=== PATIENT | female | born 2000 | race Caucasian/White ===

== ENCOUNTER 2022-02-13 08:50 | Inpatient (IN) ==
[2022-02-13] MEDS ORDERED: OXYTOCIN 30 UNITS/500 ML BAG IV PRN ×2 (10:02→14:36)
[2022-02-13 10:42] LABS: Hematocrit (blood only) 36.1 % (34.1-44.9); Hemoglobin 12.7 g/dl (12.0-16.0); Mean Corpuscular Hemoglobin 30.4 pg (25.0-34.0); Mean Corpuscular Hgb Conc 35.2 g/dL (32.0-36.0); Mean Corpuscular Volume 86.4 fL (80.0-100.0); Mean Platelet Volume 11.8 fL (9.4-12.3); Platelet Count 203 K/uL (130-400); RDW Coefficient of Variation 13.6 % (11.5-14.5); RDW Standard Deviation 42.4 fL (36.4-46.3); Red Blood Count 4.18 M/uL (3.93-5.22); White Blood Count 14.06 K/ul (4.8-10.8)
[2022-02-13] MEDS: LACTATED RINGER'S 1,000 ML IV PRN ×2 (11:21→16:10)
--- NOTE | 2022-02-13 11:29 | History & Physical Report ---
Date of Service February 13, 2022 Assessment & Plan (1) Supervision of normal intrauterine in primigravida: Plan: IUP at term in labor hoping to have unmedicated anticipate vaginal Admission and Anticipated Discharge Date Admission Date: February 13, 2022 History of Present Illness Primary Care Provider: Hugo Mercado MD Patient is a EDC 02/12/2022 who presented in active labor. contractions started at 0330 this morning - (-)bloody show (-) SPROM. has been uncomplicated so far. GBS(-). Allergies Allergy/AdvReac Type Severity Reaction Status Date / Time tretinoin Allergy Mild dry Verified 02/13/22 10:22 crusted skin Home Medications Medication Instructions Recorded Confirmed Type prenat.vits,juanjose,uqo-[id number]-[id number] 1 tab PO DAILY 07/06/21 02/13/22 History Patient History Medical History ADHD (attention deficit hyperactivity disorder) ASD (atrial septal defect), ostium secundum Bicuspid aortic valve Exposure to COVID-19 virus Heart murmur Migraine headache Surgical History No pertinent past surgical history Family History Other No significant family history Social History (Updated 07/06/21 @ 11:05 by Jaymie Blank) Smoking Status: Never smoker Second Hand Exposure: No; Hx Alcohol Use: No Hx Substance Use: No Preferred Language: Czech Communication Ability: Effective Water Fitness Instructor Required: No Beliefs That Will Affect Care: None marital status: Single marital status details: FOB: [place] (48) [phone] Current Living Situation: Significant Other Current Living Situation Comment: [place] and his 4 daughters (15yo,12,10,8) current occupational status: unemployed Other Information That Helps Us Care for You: No Feels Safe at Home: Yes Safety Concerns: Feels Safe At This Time Childhood Exposure to Second-Hand Smoke: No Dental Care, Regularly: Yes Assistive Devices: None Review of Systems All systems reviewed & are unremarkable except as noted in HPI & below Physical Exam Constitutional: WD/WN, vitals as above Psychiatric: A+Ox3, euthymic affect Genitourinary: OB Exam Abdomen: + vertex, + estimated weight (7-8 pounds) and + regular contractions (Q2-3 minutes-moderate) Manual OB Exam: + cervical dilation 7 cm, + cervical effacement (100) 100%, + station 0 and + amniotic fluid (AROM for clear fluid) clear OB Exam Monitor Tracing: + external FHT monitor used, + external uterine monitor used, + category I and + normal FHT variability Results & Data ([facility]) Vital Signs (Past 12 Hours) Vital Signs Temp Pulse Resp BP 02/13/22 09:53 97.9 F 20 02/13/22 09:49 85 111/76 Code Status & VTE Plan VTE Prophylaxis Plan VTE Prophylaxis will be ordered: No Coding Level of Care Code None Diagnoses Supervision of normal intrauterine in primigravida Z34.00
[2022-02-13] MEDS: OXYTOCIN 30 UNITS/500 ML BAG IV PRN ×2 (13:36→16:05)
[2022-02-13] MEDS: LIDOCAINE 1% LOCAL 20 ML VIAL INFIL PRN ×2 (14:04→14:45)
[2022-02-13] MEDS ORDERED: DIPHTHERIA/TETANUS/PERTUSSIS 0.5 ML SYR/VIAL IM ONE (14:36)
[2022-02-13] MEDS ORDERED: bisacodyL 10 MG SUPP PR PRN (14:36)
[2022-02-13] MEDS ORDERED: ACETAMINOPHEN 325 MG TAB PO PRN (14:36)
[2022-02-13] MEDS ORDERED: HYDROCORTISONE ACETATE 25 MG SUPP PR PRN (14:36)
[2022-02-13] MEDS ORDERED: BENZOCAINE 20% AER SPR 82.5 GM CAN EXT PRN (14:36)
--- NOTE | 2022-02-13 15:34 | Delivery Summary ---
Vaginal Delivery Summary Date of Service February 13, 2022 Vaginal Delivery Summary and 2nd Degree LAC (left sulcal extension & bilateral 2nd degree labial tears repaired. ) Patient is a 21-year-old 1 P0 female EDC of 02/12/2022 who presented in active labor on the day of her scheduled induction. She was 7 cm upon arrival and membranes were ruptured for clear fluid. She requested an unmedicated and progressed to full dilation and +2 station. She had the urge to push at that time and did so effectively over intact perineum. The perineum was supported at the time of delivery however the infant presented as occiput posterior then rotated to left occiput transverse. A loose nuchal cord was reduced after delivery of the head the rest of the delivered easily and was placed on the mother's abdomen for further attention and drying. With stimulation and drying the was then moving all 4 limbs and crying. After 1 minute the cord was clamped and cut. The placenta was expressed intact with a three-vessel cord. There was significant bleeding from the vaginal laceration site so visualization was difficult initially. A lap sponge was used vaginally to create hemostasis so the apex of the left sulcal tear could be identified. 3-0 chromic was used to close the defect along the left vaginal sidewall this then extended into a laceration at the hymenal ring. This defect was then closed in a running fashion. The bilateral second-degree labial lacerations were then closed with 3-0 chromic. 1% lidocaine was used to anesthetize the area of repair. bleeding was controlled with dilute Pitocin. Mother and were doing well after delivery. Estimated blood loss was 350 cc. [facility] Vaginal Delivery Charge Delivery Type Details: and 2nd Degree LAC (left sulcal extension & bilateral 2nd degree labial tears repaired. )
--- NOTE | 2022-02-13 17:07 | Anesthesiology Consultation ---
Date of Service February 13, 2022 Assessment & Plan Chart Review Chart Review: Acceptable Risk for Surgery Consults Requested none History Surgery Operation Date: 02/13/22 16:30 Proposed Procedures p Labor Delivery Repair Vaginal Laceration - Johanna Velez MD, FACOG Height/Weight Height: 5 ft 3 in Weight: 77.564 kg Allergies Allergy/AdvReac Type Severity Reaction Status Date / Time tretinoin Allergy Mild dry Verified 02/13/22 10: crusted skin Medications Home Medications Medication Instructions Recorded Confirmed Last Taken prenat.vits,juanjose,[id number]-[id number] 1 tab PO DAILY 07/06/21 02/13/22 02/13/22 07:00 Active Medications Generic Name Dose Route Start Last Admin Trade Name Freq PRN Reason Stop Dose Admin Lactated Ringer's 1,000 mls @ 125 mls/hr 02/13/22 10:02 02/13/22 16:10 Lr IV 02/15/22 10:01 125 mls/hr .Q8H PRN Administration L&D Protocol Protocol Oxytocin 30 units in 500 mls @ 333 mls/hr 02/13/22 10:02 02/13/22 16:11 Pitocin IV 03/15/22 10:01 19.98 units/hr .Q1H31M PRN 333 mls/hr Bleeding Control Titration Protocol 19.98 UNITS/HR Lidocaine HCl 20 ml 02/13/22 10:02 02/13/22 14:45 Lidocaine 1% Local 20 Ml Vial INFIL 03/15/22 10:01 20 ml ONCE PRN Administration Perineal/vaginal Repair Past Medical History Medical History ADHD (attention deficit hyperactivity disorder) ASD (atrial septal defect), ostium secundum Bicuspid aortic valve Exposure to COVID-19 virus Heart murmur Migraine headache Past Family History Family History Other No significant family history Past Surgical History Surgical History No pertinent past surgical history Social History Smoking Status: Never smoker Hx Alcohol Use: No Hx Substance Use: No Physical Exam Vital Signs Last Vital Signs Temp 36.4 C L 02/13/22 11:18 Pulse 118 H 02/13/22 16:41 Resp 20 02/13/22 14:30 BP 109/75 02/13/22 16:41 Testing Laboratory Results 02/13/22 10:31
[2022-02-13] MEDS ORDERED: TRANEXAMIC ACID / 0.7% NACL 1000MG/100ML BAG IV ONE (17:33)
--- NOTE | 2022-02-13 18:30 | Post Operative Brief Note ---
PG Immediate Post Op with CF Date of Surgery February 13, 2022 Pre & Post Diagnosis Operation Date: 02/13/22 16:30 <No data on this case meets the specified criteria> I identified the patient and participated in the time-out.: Yes Procedure Operation Date: 02/13/22 16:30 Actual Procedures p Labor Delivery Repair Vaginal Laceration; Exam under Anesthesia(Bilateral) - Johanna Velez MD, FACOG Surgeon Johanna Velez MD, FACOG Photoengraving Proofer Merlyn Rai DO Estimated Blood Loss 100 Findings Consistent with Post-Op Diagnosis left sulcal tear apex bleeding , bleeding also from right sulcal tear near introitus Drains Bey Catheter Anesthesia Type Spinal Complications none Disposition Accompanied Patient To Recovery: Yes Disposition: L&D
[2022-02-13 18:36] LABS: Hematocrit (blood only) 28.2 % (34.1-44.9); Hemoglobin 9.6 g/dl (12.0-16.0)
--- NOTE | 2022-02-13 19:13 | Operative Report ---
PG Post Operative Report Pre & Post Diagnosis Operation Date: 02/13/22 16:30 <No data on this case meets the specified criteria> I identified the patient and participated in the time-out.: Yes Procedure Operation Date: 02/13/22 16:30 Actual Procedures p Labor Delivery Repair Vaginal Laceration; Exam under Anesthesia(Bilateral) - Johanna Velez MD, FACOG Surgeon Johanna Velez MD, FACOG Brood Hatchery Manager Merlyn Rai DO Estimated Blood Loss 100 Findings Consistent with Post-Op Diagnosis Specimens none Drains Bey to straight drainage Anesthesia Type Spinal Complications none Disposition Accompanied Patient To Recovery: Yes Disposition: L&D Indications Patient is a 21-year-old female who delivered spontaneously without epidural or medication at approximately 1330 today. She had a significant left sulcal tear vaginally as well as a deep tear at the hymenal ring and a smaller right sulcal tear. This initially had been repaired with local anesthetic in the delivery room. Hemostasis was excellent initially, but after approximately 1 hour she began to have heavier vaginal bleeding despite the fact that her fundus was firm. On exam she was noted to be bleeding from the apex of the left sulcus laceration. It was felt prudent to proceed to the OR for exam under anesthesia and repair to adequately reach the bleeding site. Approximately 500 cc of measured blood loss prior to taking her to the OR. Description of Procedure After the patient received adequate saddle block anesthetic she was prepped and draped in usual sterile fashion. The apex of the left sulcal tear was identified and suture ligation was performed at the area of bleeding. Hematoma began to form beneath the repair site. Several [id number] stitches were placed on either side of the apex of the sulcal tear. This controlled the development of the hematoma. The sulcal tear was reinforced with an additional running locking suture to reinforce the repair done right after delivery. Monitoring the hematoma and sulcal tear area revealed no further development of hematoma and hemostasis was noted to be excellent in the apex of the sulcal laceration. Rest the vagina was then examined and there was bleeding also coming from the right vaginal sidewall. There is noted to be a smaller sulcal tear in this area and 3-0 chromic was used to secure the bleeding in a running locking fashion. At this point hemostasis was noted to be excellent. There is no vaginal hematoma formation noted. The vaginal wounds lacerations were observed for another 15 minutes to be sure there was no additional bleeding and no hematoma formation. Rectal exam at the end of the case revealed no suture in the rectum and no hematoma formation present. There is an additional 100 cc of blood loss during this portion of the case. A Bey catheter was placed at the end of the case using sterile technique. Patient was in stable condition upon arrival back in the labor and delivery room. I attest to the content of the Intraoperative Record and any orders documented therein. Any exceptions are noted below. [employer] Other Procedure Codes 19769 Exam under Anesth (repair of complicated bilateral sulcal lacerations)
--- NOTE | 2022-02-13 20:06 | Anesthesiology Progress Note ---
Date of Service February 13, 2022 Anesthesia Post Procedure Vital Signs Vital Signs: Temp Pulse Resp BP Pulse Ox 02/13/22 18:55 37.0 C 18 02/13/22 18:25 20 02/13/22 18:15 20 02/13/22 18:05 20 02/13/22 17:55 36.7 C 20 02/13/22 15:30 20 02/13/22 14:30 20 02/13/22 09:53 36.6 C 20 02/13/22 20:03 99 02/13/22 20:03 129 H 02/13/22 19:58 99 02/13/22 19:58 137 H 02/13/22 19:53 98 02/13/22 19:53 133 H 02/13/22 19:48 99 02/13/22 19:48 139 H 02/13/22 19:43 98 02/13/22 19:43 125 H 02/13/22 19:43 121 H 02/13/22 19:43 116/82 02/13/22 19:38 99 02/13/22 19:38 111 H 02/13/22 19:33 99 02/13/22 19:33 119 H 02/13/22 19:33 116 H 02/13/22 19:33 107/77 02/13/22 19:28 100 02/13/22 19:28 124 H 02/13/22 19:23 99 02/13/22 19:23 132 H 02/13/22 19:23 124/77 02/13/22 19:18 99 02/13/22 19:18 117 H 02/13/22 19:13 100 02/13/22 19:13 118 H 02/13/22 19:08 100 02/13/22 19:08 114 H 02/13/22 19:03 99 02/13/22 19:03 109 H 02/13/22 18:58 98 02/13/22 18:58 115 H 02/13/22 18:53 98 02/13/22 18:53 109 H 02/13/22 18:52 115 H 02/13/22 18:52 105/69 02/13/22 18:48 99 02/13/22 18:48 108 H 02/13/22 18:43 100 02/13/22 18:43 102 H 02/13/22 18:42 121 H 02/13/22 18:42 109/69 02/13/22 18:38 100 02/13/22 18:38 114 H 02/13/22 18:33 100 02/13/22 18:33 113 H 02/13/22 18:33 116 H 02/13/22 18:33 107/77 02/13/22 18:28 100 02/13/22 18:28 121 H 02/13/22 18:23 100 02/13/22 18:23 116 H 02/13/22 18:18 100 02/13/22 18:18 106 H 02/13/22 18:13 100 02/13/22 18:13 132 H 02/13/22 18:08 100 02/13/22 18:08 125 H 02/13/22 18:03 100 02/13/22 18:03 121 H 02/13/22 18:03 125 H 02/13/22 18:03 104/74 02/13/22 17:58 99 02/13/22 17:58 141 H 02/13/22 17:55 129 H 02/13/22 17:55 114/74 02/13/22 17:53 100 02/13/22 17:53 128 H 02/13/22 16:41 118 H 02/13/22 16:41 109/75 02/13/22 16:36 122 H 02/13/22 16:36 113/76 02/13/22 16:32 133 H 02/13/22 16:32 121/77 02/13/22 16:27 137 H 02/13/22 16:27 122/63 02/13/22 16:22 136 H 02/13/22 16:22 117/55 L 02/13/22 16:17 113 H 02/13/22 16:17 113/73 02/13/22 16:12 121 H 02/13/22 16:12 108/68 02/13/22 16:06 115 H 02/13/22 16:06 108/63 02/13/22 15:58 70 02/13/22 15:58 104/57 L 02/13/22 15:46 118 H 02/13/22 15:46 107/78 02/13/22 15:31 103 H 02/13/22 15:31 110/76 02/13/22 15:16 117 H 02/13/22 15:16 116/60 02/13/22 15:01 114 H 02/13/22 15:01 106/74 02/13/22 14:45 113 H 02/13/22 14:45 108/73 02/13/22 14:30 116 H 02/13/22 14:30 112/77 02/13/22 14:23 120 H 02/13/22 14:23 112/81 02/13/22 14:09 116 H 02/13/22 14:09 126/68 02/13/22 13:45 123 H 02/13/22 13:45 104/62 02/13/22 12:27 102 H 02/13/22 12:27 123/86 02/13/22 11:18 36.4 C L 02/13/22 09:49 85 111/76 Transfer of Care Handoff Completed per policy Notes Mental Status: alert / awake / arousable and participated in evaluation Nausea / Vomiting: adequately controlled Pain: adequately controlled Airway Patency, RR, SpO2: stable & adequate BP & HR: stable & adequate Hydration State: stable & adequate Neuraxial Anesthesia: was administered and sensory block is resolving Anesthetic Complications: no major complications apparent and Pt Satisfied with anesthetic care
[2022-02-13] MEDS: DOCUSATE SODIUM 100 MG CAP PO SCH (21:15)
[2022-02-13] MEDS: IBUPROFEN 600 MG TAB PO PRN (23:33)
[2022-02-14] MEDS: cefOXitin 2,000 MG in DEXTROSE 5% 50 ML IV SCH ×2 (00:01→05:56)
--- NOTE | 2022-02-14 05:20 | Obstetrical Progress Note ---
Date of Service February 14, 2022 Assessment & Plan (1) care following vaginal delivery: (2) Obstetric labial laceration, delivered, current hospitalization: (3) Anxiety and depression: Plan - Pt. s/p operative repair of bilateral sulcal and labial tears under spinal an esthesia - Bleeding well controlled, lochia light - Pain is controlled with ibuprofen 600 mg - Overall, feeling well and eating well today - formula feeding going well without concern, no breast pain - Bey catheter removed this morning, no independent void yet, passing gas, no bowel movement - No ambulation at this time, encourage ambulation and sitting at the edge of bed today - Patient anxiety/depression managed with Lexapro outpatient prior to , restart Lexapro 5 mg - Awaiting confirmation of home dose of Adderall from patient - PP care progressing well - anticipate independent void and progression in ambulation - Recommending continued stay until tomorrow Admission and Anticipated Discharge Date Admission Date: February 13, 2022 Supervising Physician Co-Signing Physician Notes Resident Physician Supervision Note: I interviewed and examined the patient. Discussed with Dr. Rai and agree with findings and plan as documented in the note. Any exceptions or clarifications are listed here: [None] Documented By: Johanna Velez MD, FACOG Subjective Today 02/14: Patient is a 21 y/o female who is PPD #1 following un-medicated vaginal delivery @ 40w1d. Significant bilateral sulcal tears were noted during delivery and repaired. Bleeding recurred after 1 hour, requiring repair under spinal anesthesia in the OR. Bey placed in OR. - Ambulation - minimal if any, has declined thus far - Voiding/Bey - Bey removed this AM, no independent voids yet, no dysuria or suprapubic pressure - Gas/Stool - passing gas, no bowel movement - Diet - regular, no nausea or emesis - Lochia - diminishing, light amount on pad - Infant Feeding Type - bottle feeding - Pain Level - 4/10, controlled with Ibuprofen Review of Systems - Denies fever, chills, sweats - Denies shortness of breath, difficulty breathing, chest pain, palpitations, chest pressure. - Denies breast pain. - Denies dysuria. - Denies headache or changes in vision. - No paresthesia, itching, or numbness in her legs, moving extremities w/o difficulty Physical Exam Physical Exam: General: Alert, oriented. No acute distress. Cardiac: RRR, normal S1/S2, no murmurs/rubs/gallops. Respiratory: Non-labored, CTAB, no wheezes/rales/rhonchi. Symmetric chest rise. Abdomen: Soft, nontender, nondistended. Bowel sounds present. Uterus: Uterine fundus firm, palpable 2 cm below umbilicus. Minimal amount bright red blood on pad Moderate bilateral labial edema Lower Extremities: No lower extremity edema or swelling. No deep calf pain. Alexi's negative bilaterally. Results & Data ([facility]) Vital Signs (Past 12 Hours) Vital Signs Temp Pulse Pulse Resp BP BP Pulse Ox 02/14/22 03:15 36.7 C 90 18 99/64 L 98 02/13/22 23:00 36.7 C 110 H 18 97/62 L 98 02/13/22 20:45 36.8 C 96 H 18 105/73 100 02/13/22 19:55 18 02/13/22 18:55 37.0 C 18 02/13/22 18:25 20 02/13/22 18:15 20 02/13/22 18:05 20 02/13/22 17:55 36.7 C 20 02/13/22 20:13 99 02/13/22 20:13 127 H 02/13/22 20:13 121 H 02/13/22 20:13 106/67 02/13/22 20:08 100 02/13/22 20:08 124 H 02/13/22 20:03 99 02/13/22 20:03 129 H 02/13/22 19:58 99 02/13/22 19:58 137 H 02/13/22 19:53 98 02/13/22 19:53 133 H 02/13/22 19:48 99 02/13/22 19:48 139 H 02/13/22 19:43 98 02/13/22 19:43 125 H 02/13/22 19:43 121 H 02/13/22 19:43 116/82 02/13/22 19:38 99 02/13/22 19:38 111 H 02/13/22 19:33 99 02/13/22 19:33 119 H 02/13/22 19:33 116 H 02/13/22 19:33 107/77 02/13/22 19:28 100 02/13/22 19:28 124 H 02/13/22 19:23 99 02/13/22 19:23 132 H 02/13/22 19:23 124/77 02/13/22 19:18 99 02/13/22 19:18 117 H 02/13/22 19:13 100 02/13/22 19:13 118 H 02/13/22 19:08 100 02/13/22 19:08 114 H 02/13/22 19:03 99 02/13/22 19:03 109 H 02/13/22 18:58 98 02/13/22 18:58 115 H 02/13/22 18:53 98 02/13/22 18:53 109 H 02/13/22 18:52 115 H 02/13/22 18:52 105/69 02/13/22 18:48 99 02/13/22 18:48 108 H 02/13/22 18:43 100 02/13/22 18:43 102 H 02/13/22 18:42 121 H 02/13/22 18:42 109/69 02/13/22 18:38 100 02/13/22 18:38 114 H 02/13/22 18:33 100 02/13/22 18:33 113 H 02/13/22 18:33 116 H 02/13/22 18:33 107/77 02/13/22 18:28 100 02/13/22 18:28 121 H 02/13/22 18:23 100 02/13/22 18:23 116 H 02/13/22 18:18 100 02/13/22 18:18 106 H 02/13/22 18:13 100 02/13/22 18:13 132 H 02/13/22 18:08 100 02/13/22 18:08 125 H 02/13/22 18:03 100 02/13/22 18:03 121 H 02/13/22 18:03 125 H 02/13/22 18:03 104/74 02/13/22 17:58 99 02/13/22 17:58 141 H 02/13/22 17:55 129 H 02/13/22 17:55 114/74 02/13/22 17:53 100 02/13/22 17:53 128 H O2 Del Method 02/14/22 03:15 Room Air 02/13/22 23:00 Room Air 02/13/22 20:45 Room Air 02/13/22 19:55 02/13/22 18:55 02/13/22 18:25 02/13/22 18:15 02/13/22 18:05 02/13/22 17:55 02/13/22 20:13 02/13/22 20:13 02/13/22 20:13 02/13/22 20:13 02/13/22 20:08 02/13/22 20:08 02/13/22 20:03 02/13/22 20:03 02/13/22 19:58 02/13/22 19:58 02/13/22 19:53 02/13/22 19:53 02/13/22 19:48 02/13/22 19:48 02/13/22 19:43 02/13/22 19:43 02/13/22 19:43 02/13/22 19:43 02/13/22 19:38 02/13/22 19:38 02/13/22 19:33 02/13/22 19:33 02/13/22 19:33 02/13/22 19:33 02/13/22 19:28 02/13/22 19:28 02/13/22 19:23 02/13/22 19:23 02/13/22 19:23 02/13/22 19:18 02/13/22 19:18 02/13/22 19:13 02/13/22 19:13 02/13/22 19:08 02/13/22 19:08 02/13/22 19:03 02/13/22 19:03 02/13/22 18:58 02/13/22 18:58 02/13/22 18:53 02/13/22 18:53 02/13/22 18:52 02/13/22 18:52 02/13/22 18:48 02/13/22 18:48 02/13/22 18:43 02/13/22 18:43 02/13/22 18:42 02/13/22 18:42 02/13/22 18:38 02/13/22 18:38 02/13/22 18:33 02/13/22 18:33 02/13/22 18:33 02/13/22 18:33 02/13/22 18:28 02/13/22 18:28 02/13/22 18:23 02/13/22 18:23 02/13/22 18:18 02/13/22 18:18 02/13/22 18:13 02/13/22 18:13 02/13/22 18:08 02/13/22 18:08 02/13/22 18:03 02/13/22 18:03 02/13/22 18:03 02/13/22 18:03 02/13/22 17:58 02/13/22 17:58 02/13/22 17:55 02/13/22 17:55 02/13/22 17:53 02/13/22 17:53 Resident Activity Tracking Resident Involvement: Resident Care Provided Care Provided: OB Delivery
[2022-02-14 07:27] LABS: Partial Thromboplastin Ratio 0.9; Partial Thromboplastin Time 25.8 Seconds (21.0-31.0); Prothrombin Time 10.2 Seconds (9.0-12.0)
[2022-02-14 08:13] LABS: Hematocrit (blood only) 21.4 % (34.1-44.9); Hemoglobin 7.4 g/dl (12.0-16.0); Mean Corpuscular Hemoglobin 30.5 pg (25.0-34.0); Mean Corpuscular Hgb Conc 34.6 g/dL (32.0-36.0); Mean Corpuscular Volume 88.1 fL (80.0-100.0); Mean Platelet Volume 11.7 fL (9.4-12.3); Platelet Count 141 K/uL (130-400); RDW Coefficient of Variation 13.6 % (11.5-14.5); RDW Standard Deviation 43.3 fL (36.4-46.3); Red Blood Count 2.43 M/uL (3.93-5.22); White Blood Count 11.49 K/ul (4.8-10.8)
[2022-02-14] MEDS: AMPHETAMINE ASP/SULF/DEXTRAMPH 5 MG TAB PO SCH (08:44)
[2022-02-14] MEDS: DOCUSATE SODIUM 100 MG CAP PO SCH ×2 (08:44→20:13)
[2022-02-14] MEDS: PRENATAL VITAMIN 1 TAB PO SCH (08:44)
[2022-02-14] MEDS: ESCITALOPRAM OXALATE 10 MG TAB PO SCH (08:45)
[2022-02-14] MEDS: FERROUS SULFATE 325 MG TAB PO SCH (09:53)
--- NOTE | 2022-02-14 15:56 | Communication Note ---
Date of Service: February 14, 2022 Met with pt, FOB, and pt's big sister (close family friend). Bedoya catheter was placed yesterday and removed this AM. Pt was unable to void until about 2pm for about 75cc, bladder scan at that time was over 700. She was able to void another 300 shortly thereafter. She continued to sit on commode per nursing to try and void, reporting she felt like she had to void but was unable to. I presented to room shortly thereafter to discuss pt's options. FOChiqui strongly desires for pt to be discharged tonight as they have 4 other children at home. I discussed that at this point with pt unable to void successfully that she is not medically ready for discharge. Discussed the reasoning behind repeat catheterization so that bladder remains decompressed. He asked why the pt could not continue hydrating and try again. Discussed that at this point, there is still almost 50% residual volume and if she continues hydrating now without cath, it will only continue to increase in amount and are back to where we started. he states that if she can go home, she will be able to void there. I again reviewed reasoning behind why she is having difficulty voiding and the risk of going home without adequately being able to void including worsening distension that may require trip to ER for catheterization or at worse, bladder rupture requiring emergent surgery and potential consequences following that. Reviewed extensively again why I recommend a repeat catherization and do not feel she is medically stable for discharge, also reviewing her h/h and she has not been up moving around much today. Pt's big sister was present and involved during my counseling regarding questions. Pt inquiring about straight cath vs bedoya cath, discussed I am ok with trying a straight cath but if she is still unable to void that I would recommend a bedoya overnight and she verbalized understanding. She desired a few minutes to consider her options and will let us know
[2022-02-14] MEDS ORDERED: LIDOCAINE 2% JELLY 5 ML TUBE ONE (16:06)
[2022-02-14] MEDS: IBUPROFEN 600 MG TAB PO PRN ×2 (16:34→20:12)
[2022-02-14] MEDS ORDERED: bisacodyL 5 MG TABEC PO SCH (20:00)
--- NOTE | 2022-02-14 21:52 | Communication Note ---
Date of Service: February 14, 2022 Pt voided 150, bladder scanned for >250. Met with pt and fob with RN. Discussed that still not able to void majority of urine volume so, would still recommend bedoya overnight for bladder decompression rather than second straight cath and my reasoning for this recommendation. Discussed could use lidocaine to insert the catheter and pyridium to help manage catheter irritation. She is hesitant to do this. Discussed possibility that bladder may work better tomorrow but may still have issues if unable to adequately void. Pt inquired about walking and fob inquired about "a medication to help her pee". Discussed that there are some medications that can increase urine production but none that will actually help make her bladder contract and help her void. He states there is some medication called "fizzo" that his mom who is an RN told him. I suspect he is talking about generic name for pyridium, RN reviewed that this is for bladder soothing not to help her void. She desires to take the pyridium and walk around and will let me know what she decides regarding catheter
[2022-02-14] MEDS ORDERED: PHENAZOPYRIDINE HCL 100 MG TAB PO ONE (23:10)
[2022-02-15] MEDS: IBUPROFEN 600 MG TAB PO PRN ×2 (04:53→09:52)
--- NOTE | 2022-02-15 05:13 | Obstetrical Progress Note ---
Date of Service February 15, 2022 Assessment & Plan (1) care following vaginal delivery: (2) Obstetric labial laceration, delivered, current hospitalization: (3) Anxiety and depression: Plan - Pt. s/p operative repair of bilateral sulcal and labial tears under spinal an esthesia - Bleeding well controlled, lochia light - Pain is controlled with ibuprofen 600 mg - Overall, feeling well and eating well today - Infant formula feeding going well without concern, no breast pain - Ambulating without difficulty - Patient anxiety/depression managed with Lexapro outpatient prior to , restart Lexapro 5 mg - Receiving home dose of Adderall - care has progressed, but patient still remains unable to appropriately void - Pt. wishes to discharge today 02/15 - Urinary retention noted yesterday. Bladder scan indicated that a large amount of urine was remaining in the bladder post-void. Throughout the evening/night patient and FOB declined additional bladder scans, despite evidence of low void volume. Discussed with patient and FOB the importance of an additional bladder scan to determine the volume of urine within the bladder. Explained to the pair the causes and treatments of post- urinary retention. Relayed that as the patient spends more time with an extended bladder, the risk of prolonged urinary retention increases. Last evening, Bedoya catheterization was offered, but was declined. This morning, patient and FOB are requesting to leave with a Bedoya (if there is evidence of urinary retention) so that they could go home sooner. FOB believes that the Pyridium that was given is a 'water pill' that will cause patient's bladder to contract and push out more urine. Explained to patient and FOB that Pyridium acts as a urinary analgesic and that we have not given the patient a medication to cause her cause her bladder to contract, as such a medicine does not exist. It was explained to the pair that the purpose of the Pyridium was to prevent any bladder and urinary tract discomfort in the instance of Bedoya placement. As the Bedoya was declined, and the patient is not having dysuria or suprapubic pressure, an additional dose of Pyridium is not indicated at this time. Patient ultimately agreed to bladder scan this morning. Patient and FOB wish to go home with Bedoya in place if retention is noted on the scan. They expressed understanding that it is likely she will need to keep the catheter in place throughout the weekend. Explained care to the patient, her and FOB expressed understanding. Admission and Anticipated Discharge Date Admission Date: February 13, 2022 Supervising Physician Co-Signing Physician Notes Resident Physician Supervision Note: I interviewed and examined the patient. Discussed with Dr. Rai and agree with findings and plan as documented in the note. Any exceptions or clarifications are listed here: PP2 s/p complicated by repair of lacerations in OR. PP course complicated by urinary retention yesterday. Bedoya was removed early yesterday AM, had multiple small volume voids with elevated residual volumes during the day. Last evening, was able to void 150cc after straight cath in the afternoon but still had >250cc residual on bladder scan. I did recommend bedoya last evening multiple times, please see documentation in chart by myself and by nursing. They continued to decline catheterization or bladder scanning throughout the night to determine whether was still in significant retention but took the pyridium that was discussed as a measure to reduce catheter discomfort. FOB considered this a "water pill" despite multiple attempts to explain the indication for the medication. On exam this AM, fundus is at umbilicus but deviated to the pt's right. Pt denies pressure symptoms currently. Discussed that I Would recommend a bladder scan to determine PVR and that if still elevated, would recommend d/c with bedoya catheter as this would indicate the bladder has not been adequately decompressed throughout the night. They inquired about how long bedoya catheter would remain in if she was d/c'd with it, likely would recommend over the weekend and do a void trial on Saturday. Nursing did try to go get bladder scan but pt had not voided recently so pt will void and nursing will bladder scan. If scan shows that pt voided 1/2-2/3 of total bladder volume and PVR is less than 200ml, then I think ok to d/c home without catheter with instructions for timed voids so as not to overdistend bladder. If unable to meet criteria, would rec going home with bedoya catheter Documented By: Shruti Rosales MD Subjective Today 02/15: Patient is a 21 y/o female who is PPD #2 following un-medicated vaginal delivery @ 40w1d. Significant bilateral sulcal tears were noted during delivery and repaired. Bleeding recurred after 1 hour, requiring repair under spinal anesthesia in the OR. Bedoya placed in OR and removed 02/14 AM. - Ambulation - throughout room and halls, w/o difficulty - Voiding/Bedoya - Bedoya removed this 02/14, multiple attempts to void with minimal volume, no dysuria or suprapubic pressure - Gas/Stool - passing gas, no bowel movement - Diet - regular, no nausea or emesis - Lochia - diminishing, light amount on pad - Infant Feeding Type - bottle feeding - Pain Level - 0/10, controlled with Ibuprofen, received Pyridium last evening Review of Systems - Denies fever, chills, sweats - Denies shortness of breath, difficulty breathing, chest pain, palpitations, chest pressure. - Denies breast pain. - Denies dysuria. - Denies headache or changes in vision. - No paresthesia, itching, or numbness in her legs, moving extremities w/o difficulty Physical Exam Physical Exam: General: Alert, oriented. No acute distress. Cardiac: RRR, normal S1/S2, no murmurs/rubs/gallops. Respiratory: Non-labored, CTAB, no wheezes/rales/rhonchi. Symmetric chest rise. Abdomen: Soft, nontender, nondistended. Bowel sounds present. Uterus: Uterine fundus firm, palpable 3 cm below umbilicus, but with shift to right of midline Minimal amount bright red blood on pad Moderate bilateral labial edema Lower Extremities: No lower extremity edema or swelling. No deep calf pain. Alexi's negative bilaterally. Results & Data ([facility]) Vital Signs (Past 12 Hours) Vital Signs Temp Pulse Pulse Resp BP Pulse Ox O2 Del Method 02/14/22 23:40 36.6 C 109 H 18 111/71 02/14/22 20:15 36.8 C 135 H 157 H 18 102/70 100 Room Air Resident Activity Tracking Resident Involvement: Resident Care Provided Care Provided: OB Delivery
[2022-02-15 08:45] LABS: Hematocrit (blood only) 21.1 % (34.1-44.9); Hemoglobin 7.3 g/dl (12.0-16.0)
[2022-02-15] MEDS: ESCITALOPRAM OXALATE 10 MG TAB PO SCH (09:51)
[2022-02-15] MEDS: DOCUSATE SODIUM 100 MG CAP PO SCH (09:51)
[2022-02-15] MEDS: FERROUS SULFATE 325 MG TAB PO SCH (09:51)
[2022-02-15] MEDS: AMPHETAMINE ASP/SULF/DEXTRAMPH 5 MG TAB PO SCH (09:51)
[2022-02-15] MEDS: PRENATAL VITAMIN 1 TAB PO SCH (09:51)
== END 2022-02-15 17:40 | disposition home or self-care (01) | DRG 807 ==
LOC: 4S1 09:38 → 4E2 20:32